=== PATIENT | female | born 1950 | race African-American/Black ===

== ENCOUNTER 2019-12-30 06:25 | Day surgery (SDC) | payer OTHER ==
[2019-12-27 14:06] LABS: Absolute Lymphocytes (CBC) 3.7 K/uL (0.7-4.9); Basophils % 0.9 % (0-1.3); Hematocrit 42.8 % (36.0-45.0); Lymphocytes % 28.8 % (15.3-44.8); RBC Red Blood Cell Count 4.39 M/uL (3.86-4.86)
[2019-12-27 14:10] LABS: Urine Appearance CLEAR; Urine Bilirubin NEGATIVE (NEG); Urine Blood NEGATIVE (NEG); Urine Color YELLOW; Urine Glucose NEGATIVE (NEG); Urine Microscopic Reflex NO UMIC; Urine Protein NEGATIVE (NEG); Urine Specific Gravity <=1.005 (1.005-1.030); Urine Urobilinogen 0.2 mg/dL (0.2-1.0); Urine pH 6.5 (5.0-7.0)
[2019-12-27 14:18] LABS: Potassium 3.4 mmol/L (3.5-5.1)
[2019-12-27 14:49] LABS: Protime INR 1.01
[2019-12-30] MEDS ORDERED: CEFAZOLIN/SWI 2gm 2 GM/20 ML SYR ONE (06:44)
[2019-12-30] MEDS ORDERED: Ringers Lactate 1,000 ML IV ONE ×3 (06:44→12:24)
[2019-12-30] MEDS ORDERED: SCOPOLAMINE HYDROBROMIDE PATCH TD ONE (06:44)
[2019-12-30] MEDS ORDERED: propofoL 200 MG/20 ML VIAL IV ONE (06:56)
[2019-12-30] MEDS ORDERED: GLYCOPYRROLATE 0.2 MG/ML SYR ONE (06:56)
[2019-12-30] MEDS ORDERED: dexAMETHasone 10 MG/ML VIAL ONE (06:56)
[2019-12-30] MEDS ORDERED: ROCURONIUM 50 MG/5 ML VIAL IV ONE (06:56)
[2019-12-30] MEDS ORDERED: ONDANSETRON 4 MG/2 ML VIAL ONE (06:57)
[2019-12-30] MEDS ORDERED: MIDAZOLAM HCL 2 MG/2 ML INJ ONE (06:57)
[2019-12-30] MEDS ORDERED: FENTANYL CITR 250 MCG/5 ML ONE (06:57)
[2019-12-30] MEDS ORDERED: LIDOCAINE 2% MPF 5 ML VIAL ONE (06:57)
[2019-12-30] MEDS ORDERED: NA CHLORIDE 0.9% 100 ML IV ONE (07:10)
[2019-12-30] MEDS ORDERED: BUPIVACAINE 0.25% PF 30 ML VIAL ONE (07:10)
[2019-12-30] MEDS ORDERED: CEFAZOLIN/SWI 1gm 1 GM/10 ML SYR ONE (07:11)
[2019-12-30] MEDS ORDERED: VASOPRESSIN 20 UNIT/ML VIAL ONE (07:11)
[2019-12-30] MEDS ORDERED: Phenylephrine HCl 10 MG/ML 1 ML VIAL ONE (08:01)
[2019-12-30] MEDS ORDERED: FENTANYL CITR 100 MCG/2 ML ONE ×2 (09:56→11:37)
[2019-12-30] MEDS: CEFAZOLIN/SWI 1gm 1 GM/10 ML SYR ONE ×2 (10:50→11:11)
[2019-12-30] MEDS ORDERED: KETOROLAC 30 MG/ML INJ ONE (11:56)
[2019-12-30] MEDS ORDERED: ACETAMINOPHEN 500 MG TAB PO PRN (12:56)
[2019-12-30] MEDS ORDERED: HYDROCODONE/APAP 5/325 MG TAB PO PRN (12:56)
[2019-12-30] MEDS ORDERED: IBUPROFEN 200 MG TAB PO PRN (12:56)
[2019-12-30] MEDS ORDERED: Ringers Lactate 1,000 ML IV SCH (13:00)
[2019-12-30] MEDS: HYDROMORPHONE HCL 1 MG/ML INJ ONE ×2 (13:02→13:13)
--- NOTE | 2019-12-30 13:11 | P.BOP ---
Preoperative diagnosis: anterior and apical/ posterior prolapse, NATY Postoperative diagnosis: same, pelvic adhesions, perineal body defect Primary procedure: diag laparoscopy, vaginal anterior repair with dermapure biologic graft Secondary procedure: bilat SSLFcolpopexy, post repair, perineorrhaphy MUS cysto Fibreglass Gun Hand: Carlee Chambers Estimated blood loss: min Specimen: none Findings: +1/+2/-1/5/mod/7/-1/0/n/a Anesthesia: General Complications: None Drain(s): Urinary catheter Implants: dermapure, obtryx Transferred to: Recovery Room Condition: Good
[2019-12-30 13:50] VITALS: BMI 28.3
[2019-12-30] MEDS ORDERED: TEMAZEPAM 15 MG CAP PO PRN (15:05)
[2019-12-30] MEDS: PROMETHAZINE INJ 25 MG/ML AMP IV PRN ×2 (16:30→22:50)
[2019-12-30] MEDS: MORPHINE 4 MG/ML SYR IV PRN ×2 (18:46→22:36)
[2019-12-30] MEDS ORDERED: HOME MED 1 EA UNK (Temazepam [Temazepam] 30 MG) PO SCH (21:00)
--- NOTE | 2019-12-31 00:31 | OP ---
Date of Procedure: 12/30/2019 Surgeon: Jenelle Moreland MD [facility] Chair: Carlee Barton. Preoperative Diagnoses: Anterior and apical prolapse, posterior prolapse, and stress urinary inconti nence, anterior prolapse was the leading complaint and stage 3. Postoperative Diagnoses: Anterior and apical prolapse, posterior prolapse, and stress urinary incont inence, anterior prolapse was the leading complaint and stage 3, and pelvic adhesions, and perineal b jimy defect. Procedures Performed: 1.Diagnostic laparoscopy. 2.Vaginal anterior repair with DermaPure biological graft augmentation. 3.Bilateral sacrospinous ligament fixation. 4.Colpopexy. 5.Posterior repair with perineorrhaphy. 6.Mid urethral sling using Obtryx and cystoscopy. 7.Apical enterocele repair. Estimated Blood Loss: Minimal. Specimens: None. Findings: Dense adhesions of the omentum to the anterior abdominal wall. Bowel adhesions of small b owel in the pelvis as well as large bowel adhesions. Patient with history of diverticulitis. The on ly surgery she has had is ANSHU-BSO. Other findings of prolapse, +1, +2, -1, 5, moderate, 7, -1, 0, NA . Anesthesia: General anesthesia. Complications: No complications. Drains: Urinary catheter. Implants: DermaPure biological graft and Obtryx transobturator sling, transferred to the recovery ro in good condition. Indications: Patient is a 69-year-old female who presented with prolapse symptoms, referred to ar fo r prolapse evaluation and treatment. She was initially fitted with a long-stem Gellhorn pessary 2.5 inch and she used pessary for sometime, but was unable to be satisfied with the pessary. The pessary was moving and rotating and causing problems for her in terms of discomfort and it was very difficul t for her to adjust this. After she came back and wanted to proceed with surgical repair. Kegel's e xercises were also reviewed. The urodynamic testing was performed in which Valsalva leak point press ures were documented at the least pressure at 44 cm of water at S4 and maximal urethral closure press ure of 665 cm of water. She has some decreased capacity, but rest of the voiding function was normal , filling function normal as well. She underwent a medical clearance for surgery. She is a smoker, is still trying to wean. Plan to qu it for 3 months postop. Her hypertension is well controlled. Her medications were optimized. Discussed about abdominal and vaginal repairs with and without graft augmentation. The benefits and risks and efficacy and the difference between both procedures, recoveries, and risks, long-term compl ications with synthetic graft and efficacy were what which took most time to discuss. Patient unders tood all this. She was consented for laparoscopic sacral colpopexy using a synthetic graft, perineor rhaphy and cystoscopy. The alternative procedures with vaginal and paravaginal repair with biologic graft were all reviewed with the patient and she was prepared as an alternative procedure. Description Of Procedure: Patient was taken back to OR and placed in supine fashion on the operating table, general anesthesia given, 2 g of Ancef were given. Placed in dorsal lithotomy position. Abd omen, vulva, vagina, and perineum were prepped and draped in a sterile fashion. Huerta was placed to drain the bladder and the manipulator was placed in the vagina. This area was draped. 1 cm infraumbilical incision made with a scalpel using the open laparoscopy technique. Fascia was in cised, tagged. S-retractors were placed after peritoneum entered bluntly. After placing the camera through the belly I found myself under the plane of the omentum and after pulling it back to the leve l of the omentum right underneath the peritoneum, this was completely a slab of omentum. Then after I went down to see her pelvic cavity with all the adhesions, small bowel, large bowel and omentum, pl an was to just leave this alone and then proceed with a vaginal repair. This area was then desufflated, fascia closed with the help of 0 Vicryl in the inner layer and then t he outer layer. We closed the skin with subcuticular sutures and this area was draped. About 1 cm proximal to the ureterovesical junction in the anterior wall an Allis clamp was placed. T hen, 2 Allis clamps were placed at the area of the cuff scar and 3-0 Vicryl sutures were placed to ta g and janel the ends of the cuff, the 1 on the right side was more intact than on the left which was a vulsed. Then midline vaginal skin was dilated and it was stretched out enough to have almost twice t he length of the vaginal canal on the anterior wall due to the laxity of the anterior vaginal wall an d there was stratified squamous epithelium on the parts of the anterior vaginal wall. Injected with dilute vasopressin 30 mL. Then Allis clamps placed on the edges after an incision was made with a sc alpel. In the midline the incision was carried superiorly to below the level of the bladder neck and then proximally towards the vaginal cuff. Then the bladder was dissected inferiorly keeping the fas concetta thick, then went ahead and opened all the way to the level of the vaginal cuff, then all the way to the area just below the UVJ. Dissection was carried laterally to enter the paravaginal space. Th en pararectal space was entered, ischial spine was palpated and sacrospinous ligament was cleaned up first on the left side, then on the right side. Once this was done, we had Prolene suture placed on each sacrospinous ligament in the mid ligament, then 2 PDS sutures placed with the Capio on the arcua te line on both sides about a centimeter and half away from the ischial spine, then these sutures wer e tagged. Three PDS sutures were placed in the center at the top of the vaginal cuff and then the bi ological graft was opened up and all the centered 3 PDS sutures were passed through the center of the graft. The graft was about 10 x 7 cm and the markings were placed at least half a centimeter inside of the sacrospinous, so interspinous diameter of the graft was 9 cm, may be stretched to 10. First the Prolene suture was tied on the left side, then the 3 PDS sutures, then the Prolene on the right s higinio was done, the PDS sutures were then placed through this on the left side. I intertwined this wit h the Prolene sutures, but this had to be cut and replaced. Once this was replaced, it was reattache d to the area where on the graft for proper placement, then the distal part of the graft was attached to the area under the urethrovesical junction with the help of 3 PDS sutures, interrupted 2-0. The apical enterocele was reduced with the help of 3-0 Monocryl sutures x2 in pursestring fashion. Then the fascia in the anterior wall was brought together and plicated in the center. It was very lax wit h 2-0 PDS in a continuous running fashion. Once the anterior compartments were well reduced, then th e graft was placed and the fixation done. The anterior vaginal wall was well trimmed and then closed with the help of 2-0 Vicryl in a continuous running locked fashion. Posteriorly, the distal posterior wall was defective with a central defect. No posterior enterocele was seen. The apical enterocele was fixed from the top. Then the perineorrhaphy was performed after a shelby-shaped incision was made in the posterior wall after injecting with dilute vasopressin in the distal half of the posterior wall. The epithelium was excised. Then the fascial defect was insp ected after raising the posterior vaginal wall flaps on both sides finding fascia on both sides. The fascial defect that was mostly midline and distal was closed from [id number] with the scar tissue along with the fascial condensation and with 2-0 PDS. Once this was closed all the way and stitched back up in a continuous running fashion, then the epithelium was closed after trimming it with a cont inuous running 2-0 Vicryl. Distally at the perineum, a triangular skin incision was made and the ski n removed, the perineal body was reconstructed with the help of 3-0 Vicryl coming down all the way in the subcutaneous plane and going through the perineal body on both sides then coming up in a subcuti cular fashion and tying the stitch inside the perineum. Mid urethral area was picked up with Allis clamps, injected with dilute vasopressin. Patient was sari karla in high lithotomy. Then incision was made with a 15 blade, 1.5 cm in the mid urethral area sligh tly more proximal then to the distal aspect of the urethra. Then dissection was carried in a 45-degr ee angle to the horizontal and vertical planes towards the ipsilateral shoulder after perforating the obturator fascia and increasing the size of the tract to permit my forefinger, then dissection like that was performed on the left side as well. Then the Obtryx device was opened up and a pass was daniel en just immediately on the groin fold lateral to the inferior pubic ramus. My finger was used as a g uide to bring the needle tip out. First this was done on the left side, then on the right side. The mesh was placed and the sheath was left in place. Cystoscopy performed after pulling the Huerta out. No evidence of any perforation. Both ureteric orifices had strong jets of urine. No evidence of a ny trauma to the bladder. Bladder drained, Huerta replaced. The mesh was tensioned with the help of Metzenbaum scissors in the middle. Thorough irrigation and suction performed, closed with the help o f 3-0 Vicryl in a continuous running locked fashion and Dermabond on the skin incisions. Instrument, needle, and sponge counts were correct at the end of the case. Rectal exam was performed to ensure that the stitch was not through the rectal wall, they are in good position on both sides. After duarte ging the gloves, the vaginal vagina was packed, Huerta was left in place, patient was recovered from a nesthesia and taken to PACU in stable condition. She will follow up with me in 1 week. Overnight ad mission for a voiding trial in the morning. ERUM/ROBSON Voice ID: [id number] Report ID: [id number]
[2019-12-31] MEDS: MORPHINE 4 MG/ML SYR IV PRN ×2 (04:50→08:45)
[2019-12-31 06:13] LABS: Absolute Lymphocytes (CBC) 3.8 K/uL (0.7-4.9); Basophils % 0.2 % (0-1.3); Lymphocytes % 15.4 % (15.3-44.8); MPV 8.9 fL (7.6-11.3); RBC Red Blood Cell Count 3.19 M/uL (3.86-4.86)
[2019-12-31 07:27] VITALS: O2SAT 98
[2019-12-31 08:33] LABS: Blood Morphology Comment NOT SEEN (NOT SEEN); Platelet Estimate ADEQ
[2019-12-31] MEDS ORDERED: HOME MED 1 EA UNK (Lisinopril/Hydrochlorothiazide [Lisinopril-Hctz 20-12.5 Mg Tab] 1 EACH) PO SCH (09:00)
[2019-12-31] MEDS ORDERED: hydroCHLOROthiazide 12.5 MG CAP PO SCH (09:00)
[2019-12-31] MEDS ORDERED: HEPARIN 5000 UNIT/ML 1 ML VIAL SQ SCH (09:00)
[2019-12-31] MEDS ORDERED: lisinopriL 20 MG TAB PO SCH (09:00)
[2019-12-31 10:26] LABS: Absolute Lymphocytes (CBC) 4.9 K/uL (0.7-4.9); Basophils % 0.4 % (0-1.3); Hematocrit 33.1 % (36.0-45.0); Lymphocytes % 18.3 % (15.3-44.8); MPV 9.1 fL (7.6-11.3); RBC Red Blood Cell Count 3.38 M/uL (3.86-4.86)
--- NOTE | 2019-12-31 11:37 | RAD REPORT ---
EXAM DESCRIPTION: [facility] Kirt (2 Views)12/31/2019 11:22 am CLINICAL HISTORY: Abdominal pain COMPARISON: None FINDINGS: Areas of subsegmental atelectasis are present within the lung bases The heart is normal size Pneumoperitoneum is probably present. IMPRESSION: Pneumoperitoneum is probably present. Clinical history states recent surgery so this pr obably is a normal finding. Bowel perforation can also result in this appearance and should be correl ated clinically Exam was discussed with patient's nurse Maricruz
[2019-12-31 12:08] VITALS: BP 132/63; TEMP 98.7
== END 2019-12-31 13:15 | disposition home or self-care (01) ==
LOC: OR 06:25 → 2ND-WC 12:56 → OR 12-31 13:15
PROVIDERS: ATTEND Obstetrics & Gynecology
PROC: 0JUC0JZ Supplement of Pelvic Region Subcutaneous Tissue and Fascia with Synthetic Substitute, Open Approach (ICD-10-PCS; 2019-12-30)
PROC: 0JQC0ZZ Repair Pelvic Region Subcutaneous Tissue and Fascia, Open Approach (ICD-10-PCS; 2019-12-30)
PROC: 0WQNXZZ Repair Female Perineum, External Approach (ICD-10-PCS; 2019-12-30)
PROC: 0USG4ZZ Reposition Vagina, Percutaneous Endoscopic Approach (ICD-10-PCS; 2019-12-30)
PROC: 0TSD0ZZ Reposition Urethra, Open Approach (ICD-10-PCS; 2019-12-30)
PROC: 0WJJ4ZZ Inspection of Pelvic Cavity, Percutaneous Endoscopic Approach (ICD-10-PCS; 2019-12-30)
PROC: 0UQF0ZZ Repair Cul-de-sac, Open Approach (ICD-10-PCS; principal; 2019-12-30 07:30)
DX: N99.3 Prolapse of vaginal vault after hysterectomy (principal); N81.12 Cystocele, lateral; N39.3 Stress incontinence (female) (male); N73.6 Female pelvic peritoneal adhesions (postinfective); N95.2 Postmenopausal atrophic vaginitis; I10 Essential (primary) hypertension; G47.00 Insomnia, unspecified; F17.200 Nicotine dependence, unspecified, uncomplicated; Z88.6 Allergy status to analgesic agent
CPT/HCPCS: 57265; 57267; 57288; 85025 ×3; 80048; 36415 ×2; 86900; 86850; 85610; 86901; 85730; 81003; 71046; 57425; J2704; J2550 ×2; J2370; J2250; J3010 ×3; J1100; J1170; J0690 ×3; J7120 ×5; J2405; J1644